=== PATIENT | female | born 1995 | race African-American/Black ===

== ENCOUNTER 2021-06-27 22:07 | Emergency (ER) | payer OTHER ==
[~2021-06-27] VITALS: Ht 167.6 cm; Wt 99.8 kg
== END 2021-06-28 00:17 | disposition home or self-care (01) ==
LOC: ER 22:47
DX: R09.89 Other specified symptoms and signs involving the circulatory and respiratory systems (principal)
CPT/HCPCS: 70490; 81025; 99283